=== PATIENT | male | born 1995 | race Caucasian/White ===

== ENCOUNTER 2017-07-03 00:46 | Emergency (ER) | payer BC ==
[~2017-07-03] VITALS: Ht 182.9 cm; Wt 121.5 kg
[~2017-07-03 00:46] MED LIST: METOPROLOL SUCC25 MG PO
[2017-07-03 01:15] LABS: HEMATOCRIT 43.3 % (38.0-50.0); MCH 29.6 PG (29.0-34.0); MCHC 34.6 G/DL (30.0-36.0); MCV 85.6 FL (86-99); PLATELET COUNT 324 K/uL (156-360); RBC DIS.WIDTH-CV 12.5 % (11.8-14.6); RBC DIS.WIDTH-SD 38.7 % (39-53); RED BLOOD COUNT 5.06 M/uL (4.00-5.50); WHITE BLOOD COUNT 9.3 K/uL (4.1-10.2)
[2017-07-03 01:24] LABS: CHLORIDE 107 mEq/L (99-109); SODIUM 143 mEq/L (136-147)
[2017-07-03 01:25] LABS: GLUCOSE 107 mg/dL (70-99)
[2017-07-03 01:29] LABS: CREATININE 1.1 mg/dL (0.6-1.3); GFR ESTIMATE (CALCULATED) > 59 mL/min/ (58.99-99999)
[2017-07-03 01:30] LABS: UREA NITROGEN (BUN) 9 mg/dL (9-23)
[2017-07-03 01:36] LABS: TROP-I INTERPRETATION NEGATIVE; TROPONIN-I < 0.01 ng/mL (0.0-0.30)
[2017-07-03 01:51] LABS: D-DIMER ELISA < 150.00 ng/mLDDU (<230)
[2017-07-03 02:03] LABS: ALBUMIN 4.4 g/dL (3.2-4.8)
[2017-07-03 02:08] LABS: TOTAL BILIRUBIN 0.3 mg/dL (0.0-1.0)
[2017-07-03 02:09] LABS: ALKALINE PHOSPHATASE 69 IU/L (3-129)
[2017-07-03 02:11] LABS: AST (GOT) 22 IU/L (2-34); DIRECT BILIRUBIN 0.2 mg/dL (0.0-0.3)
[2017-07-03 02:12] LABS: ALT (GPT) 32 IU/L (3-49); LIPASE 23 U/L (1.0-51.0)
[2017-07-03 03:46] VITALS: BP 147/101
== END 2017-07-03 03:46 | disposition home or self-care (01) ==
LOC: EME 00:46
DX: R00.2 Palpitations (principal); J06.9 Acute upper respiratory infection, unspecified; I49.49 Other premature depolarization; R94.31 Abnormal electrocardiogram [ECG] [EKG]; I10 Essential (primary) hypertension; Z88.0 Allergy status to penicillin
CPT/HCPCS: 71046; 80048; 80076; 83690; 84484; 85027; 85379; 93005; 99281; 99285; J7030